=== PATIENT | male | born 1980 | race American Indian/Alaskan Native ===

== ENCOUNTER 2021-11-19 18:33 | Emergency (ER) | payer SELFPAY ==
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
[2021-11-19 20:01] VITALS: BP 106/60
== END 2021-11-19 20:01 ==
LOC: ED 18:33
DX: Z04.1 Encounter for examination and observation following transport accident (principal); V87.7XXA Person injured in collision between other specified motor vehicles (traffic), initial encounter; Y93.89 Activity, other specified; Y92.488 Other paved roadways as the place of occurrence of the external cause; Y99.8 Other external cause status
CPT/HCPCS: 99282